=== PATIENT | female | born 1955 | race African-American/Black ===

== ENCOUNTER 2020-10-19 09:18 | Emergency (ER) | payer MEDICARE, BC ==
[2020-10-20 00:44] LABS: SARS-CoV-2 PCR by NAA Not Detected (NotDetected)
== END 2020-10-19 10:08 | disposition home or self-care (01) ==
LOC: NAV ERS 09:18
DX: I10 Essential (primary) hypertension (principal); Z20.822 Contact with and (suspected) exposure to COVID-19
CPT/HCPCS: 99283; U0003; U0005